=== PATIENT | male | born 1955 | race Two or more races ===

== ENCOUNTER 2019-07-11 11:00 | Emergency (ER) | payer SELFPAY ==
[~2019-07-11] VITALS: Ht 167.6 cm; Wt 76.0 kg
[2019-07-11] MEDS ORDERED: VISCOUS LIDOCAINE 2% 15 ML UDC PO STA (12:17)
[2019-07-11] MEDS ORDERED: MAGNESIUM/ALUMINUM HYDROXIDE/SIMETHICONE 30ML UDC PO STA (12:17)
[2019-07-11 12:55] LABS: CLARITY URINE CLOUDY (CLEAR); COLOR URINE DK YELLOW (YELLOW); KETONES URINE NEGATIVE (NEGATIVE); LEUKOCYTE ESTERASE URINE TRACE (NEGATIVE); NITRITE URINE NEGATIVE (NEGATIVE); OCCULT BLOOD URINE 3+ (NEGATIVE); PH URINE 5.5 (4.5-8.0); PROTEIN URINE 1+ (NEGATIVE); SPECIFIC GRAVITY URINE 1.021 (1.005-1.030); UROBILINOGEN URINE 0.2 E.U./dL (0.2-1.0)
[2019-07-11 14:05] LABS: BASOPHILS % 0.4 % (0.0-2.0); EOSINOPHILS % 0.1 % (0.0-5.0); HEMATOCRIT. 43.5 % (42.0-52.0); HEMOGLOBIN. 15.7 g/dL (14.0-18.0); LYMPHOCYTES % 14.6 % (20.0-50.0); MEAN CORPUSCULAR HEMOGLOBIN 35.2 pg (28.0-32.0); MEAN CORPUSCULAR VOLUME 97.7 fL (80.0-94.0); MEAN PLATELET VOLUME 9.5 fl (7.4-10.4); MONOCYTES % 6.7 % (2.0-8.0); NEUTROPHILS % 78.2 % (40.0-76.0); PLATELET 69 x1000/uL (130-400); RED BLOOD CELL COUNT 4.45 mill/uL (4.7-6.1); RED CELL DISTRIBUTION WIDTH 15.2 % (11.6-14.6)
[2019-07-11 14:08] LABS: PROTHROMBIN TIME 11.2 sec (9.6-11.0)
[2019-07-11 14:12] LABS: CHLORIDE 104 mEq/L (98-107)
[2019-07-11] MEDS ORDERED: KETOROLAC 30MG/ML VIAL IV ONE (15:45)
[2019-07-11] MEDS ORDERED: MORPHINE SULFATE 4 MG/ML CPJ (NOT FOR IM USE) IV ONE (15:45)
[2019-07-11 17:25] VITALS: BP 149/86
== END 2019-07-11 17:27 | disposition home or self-care (01) ==
LOC: EDBD 11:00 → ER 11:00
DX: N23 Unspecified renal colic (principal); Z85.6 Personal history of leukemia
CPT/HCPCS: 36415; 74176; 76705; 80053; 81003; 83605; 83690; 84484; 85025; 85610; 96374; 96375; 99285; J1885; J2270